=== PATIENT | male | born 1950 | race Two or more races ===

== ENCOUNTER 2020-09-03 06:18 | Emergency (ER) | payer MEDICARE, MEDICAID ==
[~2020-09-03] VITALS: Ht 175.3 cm; Wt 79.4 kg
[2020-09-03 06:20] VITALS: BP 160/99
[2020-09-03 07:48] LABS: Basophils # (auto) 0.1 10 ^3/uL (0-0.2); Basophils % (auto) 1.2 % (0.0-2.0); Eosinophils # (auto) 0.3 10 ^3/uL (0-0.8); Eosinophils % (auto) 3.6 % (0.0-7.0); Hematocrit 41.5 % (41.0-53.0); Hemoglobin 13.7 g/dL (13.5-17.5); Lymphocytes # (auto) 2.6 10 ^3/uL (0.4-5.4); Lymphocytes % (auto) 37.1 % (10.0-50.0); Mean Corpuscular Hemoglobin 27.7 pg (28.0-32.0); Mean Corpuscular Hgb Conc. 33.1 g/dL (32.0-36.0); Mean Corpuscular Volume 83.8 fL (80.0-100.0); Monocytes # (auto) 0.5 10 ^3/uL (0-1.3); Neutrophils # (auto) 3.6 10 ^3/uL (1.6-8.6); Neutrophils % (auto) 51.1 % (37.0-80.0); Platelet Count (auto) 253 10^3/uL (140-450); Red Blood Cells 4.96 10^6/uL (4.5-5.90)
[2020-09-03 08:04] LABS: INR 1.04 (0.9-1.15); Partial Thromboplastin Time 25.4 sec (23.0-31.2)
[2020-09-03 08:09] LABS: Albumin 3.5 g/dL (3.4-5.0); Anion Gap 6 (5-15); Blood Urea Nitrogen 14 mg/dL (7-18); Calcium 8.5 mg/dL (8.5-10.1); Carbon Dioxide 23 mmol/L (21-32); Chloride 109 mmol/L (98-107); Glucose 160 mg/dL (74-106); Potassium 3.6 mmol/L (3.5-5.1); Sodium 138 mmol/L (136-145)
[2020-09-03 08:15] LABS: Alanine Aminotransferase 11 U/L (16-61); Alkaline Phosphatase 61 U/L (45-117); Aspartate Aminotransferase 4 U/L (15-37); BUN/Creatinine Ratio 16.9; Bilirubin, Total 0.4 mg/dL (0.2-1.0); GFR African American 118 mL/min; GFR Non-African American 98 mL/min; Total Protein 6.8 g/dL (6.4-8.2)
[2020-09-03] MEDS ORDERED: HYDROcodone-ACET 5/325MG TAB PO ONE (08:30)
== END 2020-09-03 11:15 | disposition home or self-care (01) ==
LOC: ER 06:18
DX: M25.562 Pain in left knee (principal); E11.9 Type 2 diabetes mellitus without complications; I10 Essential (primary) hypertension
CPT/HCPCS: 36415; 73562; 80053; 83880; 84484; 85025; 85610; 85730; 93971

== ENCOUNTER 2021-07-30 14:00 | Inpatient (IN) | payer MEDICARE, MEDICAID ==
[~2021-07-30] VITALS: Ht 160 cm; Wt 97.8 kg
[2021-07-30 16:15] LABS: Basophils # (auto) 0.1 10 ^3/uL (0-0.2); Basophils % (auto) 1.1 % (0.0-2.0); Eosinophils # (auto) 0.1 10 ^3/uL (0-0.8); Hematocrit 46.7 % (41.0-53.0); Hemoglobin 15.6 g/dL (13.5-17.5); Lymphocytes # (auto) 2.8 10 ^3/uL (0.4-5.4); Mean Corpuscular Hemoglobin 28.5 pg (28.0-32.0); Mean Corpuscular Hgb Conc. 33.4 g/dL (32.0-36.0); Mean Corpuscular Volume 85.3 fL (80.0-100.0); Monocytes # (auto) 0.5 10 ^3/uL (0-1.3); Neutrophils # (auto) 3.8 10 ^3/uL (1.6-8.6); Neutrophils % (auto) 51.9 % (37.0-80.0); Nucleated Red Blood Cells % 0.1 %; Red Blood Cells 5.48 10^6/uL (4.5-5.90); Red Cell Distribution Width 13.8 % (11.8-14.3); White Blood Cell 7.4 10^3/uL (4.4-10.8)
[2021-07-30 16:30] LABS: Albumin 3.6 g/dL (3.4-5.0); Anion Gap 6 (5-15); Blood Urea Nitrogen 11 mg/dL (7-18); Calcium 8.6 mg/dL (8.5-10.1); Carbon Dioxide 23 mmol/L (21-32); Chloride 111 mmol/L (98-107); Glucose 152 mg/dL (74-106); Potassium 3.6 mmol/L (3.5-5.1); Sodium 140 mmol/L (136-145)
[2021-07-30 16:36] LABS: Alanine Aminotransferase 23 U/L (16-61); Alkaline Phosphatase 68 U/L (45-117); Aspartate Aminotransferase 8 U/L (15-37); BUN/Creatinine Ratio 11.2; Bilirubin, Total 0.9 mg/dL (0.2-1.0); GFR African American 97 mL/min; GFR Non-African American 80 mL/min; Total Protein 7.1 g/dL (6.4-8.2)
[2021-07-30] MEDS ORDERED: HYDROcodone-ACET 5/325MG TAB PO PRN (19:15)
[2021-07-30] MEDS ORDERED: ACETAMINOPHEN 500 MG TAB PO PRN (19:15)
[2021-07-30] MEDS ORDERED: DEXTROSE (50%) 50ML SYRG IV PRN (19:15)
[2021-07-30] MEDS ORDERED: MORPHINE SULFATE INJECTION 2 MG/ML SYRG IV PRN ×2 (19:15)
[2021-07-30] MEDS ORDERED: NITROGLYCERIN 0.4 MG SL TAB SL PRN (19:15)
[2021-07-30] MEDS ORDERED: ONDANSETRON HCL 4 MG/2 ML VIAL IV PRN (19:15)
[2021-07-30] MEDS ORDERED: ASPirin 81 mg TAB PO ONE (19:15)
[2021-07-30] MEDS ORDERED: LABETALOL HCL 5 MG/ML 4ML SYRINGE IV PRN (19:15)
[2021-07-30 19:40] LABS: Cholesterol 200 mg/dL (< 200); HDL Cholesterol 33 mg/dL (40-59); LDL Cholesterol 127 mg/dL (< 100); Triglycerides 317 mg/dL (< 150)
[2021-07-30] MEDS: ATORVASTATIN 20 MG TAB PO SCH (22:04)
[2021-07-30] MEDS: ACCU-CHEK COMFORT CURVE STRIP VI SCH (22:05)
[2021-07-30] MEDS: InsuLIN REG 1unit/0.01ml Soln (100units/ml) SC SCH (22:05)
[2021-07-31] VITALS (7 sets, daily range): BP systolic 122–171; BP diastolic 69–101
[2021-07-31] MEDS ORDERED: METF-370 PO (00:50)
[2021-07-31] MEDS ORDERED: TRAM50TA2 PO (00:50)
[2021-07-31] MEDS ORDERED: TAMS0.4C36 PO (00:50)
[2021-07-31] MEDS: ACCU-CHEK COMFORT CURVE STRIP VI SCH ×4 (05:36→23:06)
[2021-07-31] MEDS: InsuLIN REG 1unit/0.01ml Soln (100units/ml) SC SCH ×4 (05:47→23:07)
[2021-07-31] MEDS: ASPirin 81 mg TAB PO SCH (09:00)
[2021-07-31] MEDS ORDERED: LISINOPRIL 5 MG TAB PO ONE (12:30)
[2021-07-31] MEDS ORDERED: IOHEXOL 350 MG/ML 100ML IJ ONE (17:04)
[2021-07-31 20:09] LABS: Urine Bacteria FEW /hpf (None Seen); Urine Blood Negative /uL (Negative); Urine Mucus FEW (None Seen); Urine WBC 3 /hpf (0 - 3)
[2021-07-31 20:20] LABS: Urine Specific Gravity > 1.050 (1.001-1.035)
[2021-07-31 20:35] LABS: Amphetamine Screen, Urine NEGATIVE (NEGATIVE); Barbiturate Scree,Urine NEGATIVE (NEGATIVE); Benzodiazephine Screen, Urine NEGATIVE (NEGATIVE); Cannabinoid Screen, Urine NEGATIVE (NEGATIVE); Cocaine Screen, Urine NEGATIVE (NEGATIVE); Opiate Scree,Urine NEGATIVE (NEGATIVE); Phencyclidine Screen, Urine NEGATIVE (NEGATIVE)
[2021-07-31] MEDS: ATORVASTATIN 20 MG TAB PO SCH (23:06)
[2021-08-01 02:53] VITALS: BP 150/76
[2021-08-01 03:47] VITALS: BP 150/76
[2021-08-01 05:11] VITALS: BP 149/94
[2021-08-01 05:24] LABS: Basophils # (auto) 0.1 10 ^3/uL (0-0.2); Basophils % (auto) 0.8 % (0.0-2.0); Eosinophils # (auto) 0.2 10 ^3/uL (0-0.8); Eosinophils % (auto) 2.2 % (0.0-7.0); Hemoglobin 15.7 g/dL (13.5-17.5); Lymphocytes # (auto) 2.7 10 ^3/uL (0.4-5.4); Lymphocytes % (auto) 30.2 % (10.0-50.0); Mean Corpuscular Hemoglobin 28.4 pg (28.0-32.0); Mean Corpuscular Hgb Conc. 33.4 g/dL (32.0-36.0); Mean Corpuscular Volume 85.1 fL (80.0-100.0); Monocytes # (auto) 0.7 10 ^3/uL (0-1.3); Monocytes % (auto) 7.4 % (0.0-12.0); Neutrophils # (auto) 5.3 10 ^3/uL (1.6-8.6); Neutrophils % (auto) 59.4 % (37.0-80.0); Nucleated Red Blood Cells % 0.5 %; Red Blood Cells 5.52 10^6/uL (4.5-5.90); Red Cell Distribution Width 13.7 % (11.8-14.3)
[2021-08-01 05:48] LABS: Potassium 3.1 mmol/L (3.5-5.1)
[2021-08-01 05:55] LABS: Albumin 3.6 g/dL (3.4-5.0); Bilirubin, Total 1.1 mg/dL (0.2-1.0); Calcium 8.8 mg/dL (8.5-10.1)
[2021-08-01] MEDS: ACCU-CHEK COMFORT CURVE STRIP VI SCH ×4 (06:10→21:51)
[2021-08-01] MEDS: InsuLIN REG 1unit/0.01ml Soln (100units/ml) SC SCH ×4 (06:18→21:52)
[2021-08-01 09:00] VITALS: BP 121/79
[2021-08-01] MEDS: ASPirin 81 mg TAB PO SCH (09:16)
[2021-08-01 09:18] LABS: Folate (Folic Acid) 9.08 ng/mL (5.38-24)
[2021-08-01] MEDS: LISINOPRIL 10 MG TAB PO SCH (09:18)
[2021-08-01] MEDS: CLOPIDOGREL BISULFATE 75 MG TAB PO SCH (09:20)
[2021-08-01] MEDS ORDERED: FLUT1AER3 INH (10:31)
[2021-08-01] MEDS ORDERED: METF-929 PO (10:31)
[2021-08-01] MEDS ORDERED: GEMF600T PO (11:04)
[2021-08-01] MEDS ORDERED: CYANOCOBALAMIN (B-12) 1000 MCG/1 ML VIAL IM ONE (11:45)
[2021-08-01] MEDS ORDERED: ERGOCALCIFEROL 50,000 UNIT(1.25MG) CAP PO SCH (11:45)
[2021-08-01] MEDS ORDERED: POLYETHYLENE GLYCOL 17 GM PWDR PO ONE (14:15)
[2021-08-01] MEDS ORDERED: POTASSIUM CHL 20 Meq TABLET PO ONE (14:30)
[2021-08-01 18:03] VITALS: BP 138/75
[2021-08-01] MEDS ORDERED: LORazepam 2MG/ML-1ML VIAL IV PRN (21:30)
[2021-08-01] MEDS: ATORVASTATIN 20 MG TAB PO SCH (21:50)
[2021-08-01 22:00] VITALS: BP 132/77
[2021-08-02 05:00] VITALS: BP 96/63
[2021-08-02 05:56] LABS: Potassium 3.5 mmol/L (3.5-5.1)
[2021-08-02 06:09] LABS: BUN/Creatinine Ratio 16.5; Calcium 9.2 mg/dL (8.5-10.1); Magnesium 2.3 mg/dL (1.6-2.6)
[2021-08-02] MEDS: InsuLIN REG 1unit/0.01ml Soln (100units/ml) SC SCH ×2 (06:20→11:46)
[2021-08-02] MEDS: ACCU-CHEK COMFORT CURVE STRIP VI SCH ×2 (06:22→11:29)
[2021-08-02 09:00] VITALS: BP 97/56
[2021-08-02] MEDS: LISINOPRIL 10 MG TAB PO SCH (10:00)
[2021-08-02] MEDS: CLOPIDOGREL BISULFATE 75 MG TAB PO SCH (10:10)
[2021-08-02] MEDS: ASPirin 81 mg TAB PO SCH (10:10)
[2021-08-02 13:00] VITALS: BP 137/66
[2021-08-02] MEDS ORDERED: METF-929 PO (13:28)
[2021-08-02] MEDS ORDERED: ASPI1CHW15 PO (13:28)
[2021-08-02] MEDS ORDERED: LISI-275 PO (13:28)
[2021-08-02] MEDS ORDERED: CLOP75TA28 PO (13:28)
[2021-08-02] MEDS ORDERED: CYAN1TAB14 PO (13:28)
[2021-08-02] MEDS ORDERED: ATOR20TA50 PO (13:28)
[2021-08-02] MEDS ORDERED: ERGO1CAP23 PO (13:28)
[2021-08-02 14:31] VITALS: BP 97/56
== END 2021-08-02 15:40 | disposition home health service (06) | DRG 66 ==
LOC: EDBD 14:00 → ER 14:00 → TELE 19:11 → TELE-WESTW 22:48
PROVIDERS: ADMIT Nurse Practitioner Acute Care; ATTEND Internal Medicine
PROC: 5A09357 Assistance with Respiratory Ventilation, Less than 24 Consecutive Hours, Continuous Positive Airway Pressure (ICD-10-PCS; principal; 2021-07-31)
DX: I63.81 Other cerebral infarction due to occlusion or stenosis of small artery (principal); E11.9 Type 2 diabetes mellitus without complications; E66.9 Obesity, unspecified; I25.10 Atherosclerotic heart disease of native coronary artery without angina pectoris; G47.33 Obstructive sleep apnea (adult) (pediatric); E55.9 Vitamin D deficiency, unspecified; E78.5 Hyperlipidemia, unspecified; I11.9 Hypertensive heart disease without heart failure; Z20.822 Contact with and (suspected) exposure to COVID-19; G83.14 Monoplegia of lower limb affecting left nondominant side; R29.810 Facial weakness; R47.01 Aphasia; Z79.82 Long term (current) use of aspirin; Z79.84 Long term (current) use of oral hypoglycemic drugs; Z79.899 Other long term (current) drug therapy; Z82.3 Family history of stroke; Z82.49 Family history of ischemic heart disease and other diseases of the circulatory system; Z83.3 Family history of diabetes mellitus; Z87.442 Personal history of urinary calculi; Z95.1 Presence of aortocoronary bypass graft; Z68.33 Body mass index [BMI] 33.0-33.9, adult
CPT/HCPCS: 36415; 70450; 70491; 70496; 71045; 80048; 80053; 80061; 80307; 81001; 82043; 82306; 82607; 82746; 82962; 83036; 83735; 84443; 84484; 85025; 87426; 93005; 93306; 93886; 96365; 96366; 97163; G0378; J1815; J3490